=== PATIENT | female | born 1990 | race Caucasian/White ===

== ENCOUNTER 2017-12-17 01:51 | Emergency (ER) | payer BC ==
[~2017-12-17] VITALS: Ht 167.6 cm; Wt 61.9 kg
[~2017-12-17 01:51] MED LIST: CIPR500T87 PO; FLUO20CA8 PO; IBUP-1222 PO; OXYC-302 PO; TORADOL PO
[2017-12-17 01:53] VITALS: BP 127/80
[2017-12-17] MEDS ORDERED: BCP (01:59)
[2017-12-17] MEDS ORDERED: DIPH,PERTUSS(ACELL),TET VAC/PF 0.5 ML IM-VACC ONE ×2 (02:27→02:30)
[2017-12-17] MEDS ORDERED: LIDOCAINE-MPF 1%, 5ML ONE (02:28)
[2017-12-17] MEDS ORDERED: LIDOCAINE 1%, 10ML INFIL ONE (02:30)
[2017-12-17] MEDS ORDERED: LIDOCAINE-MPF 1%, 5ML INFIL ONE (02:30)
== END 2017-12-17 03:03 | disposition home or self-care (01) ==
LOC: ED 02:57
DX: S66.991A Other injury of unspecified muscle, fascia and tendon at wrist and hand level, right hand, initial encounter (principal); X58.XXXA Exposure to other specified factors, initial encounter; Y93.89 Activity, other specified; Y92.89 Other specified places as the place of occurrence of the external cause; Y99.8 Other external cause status
CPT/HCPCS: 90471; 90715; 99283; J3490

== ENCOUNTER 2019-03-23 15:41 | Emergency (ER) | payer BC ==
[~2019-03-23] VITALS: Ht 167.6 cm; Wt 72.0 kg
[~2019-03-23 15:41] MED LIST changes: +BCP
[2019-03-23 15:55] VITALS: BP 140/71
[2019-03-23 16:25] LABS: BASOPHILS # (AUTO) 0.07 x10^3/uL (0-0.1); BASOPHILS % (AUTO) 1 % (0-1); EOSINOPHILS # (AUTO) 0.09 x10^3/uL (0-0.4); EOSINOPHILS % (AUTO) 1 % (1-7); LYMPHOCYTES # (AUTO) 2.25 x10^3/uL (1-3.4); LYMPHOCYTES % (AUTO) 19 % (22-44); MD NO; MEAN CORPUSCULAR HGB CONC 33.7 g/dL (32.4-35.8); MEAN CORPUSCULAR VOLUME 89.2 fL (80-100); MEAN PLATELET VOLUME 9.1 fL (7.4-10.4); MONOCYTES # (AUTO) 0.78 x10^3/uL (0.2-0.8); MONOCYTES % (AUTO) 7 % (2-9); NEUTROPHILS # (AUTO) 8.78 x10^3/uL (1.8-6.8); NEUTROPHILS % (AUTO) 73 % (42-75); PLATELET COUNT 247 x10^3/uL (130-400); RED BLOOD COUNT 4.68 x10^6/uL (3.82-5.3); RED CELL DISTRIBUTION WIDTH 12.7 % (9.6-15.2)
[2019-03-23 16:33] LABS: ANION GAP 4 mmol/L (5-15); CALCIUM 8.8 mg/dL (8.5-10.1); CHLORIDE 110 mmol/L (98-107); CREATININE 0.77 mg/dL (0.55-1.02)
--- NOTE | 2019-03-23 16:48 | NUR ---
TO ROOM FROM LOBBY. NAD.
[2019-03-23 17:51] LABS: MICROSCOPIC AUTO
[2019-03-23 17:52] LABS: CULTURE INDICATED? NO
== END 2019-03-23 18:36 | disposition home or self-care (01) ==
LOC: ED 18:23
DX: R42 Dizziness and giddiness (principal); F17.200 Nicotine dependence, unspecified, uncomplicated; T50.905A Adverse effect of unspecified drugs, medicaments and biological substances, initial encounter; Y92.9 Unspecified place or not applicable
CPT/HCPCS: 36415; 80048; 81001; 81025; 85025; 93005; 99284